=== PATIENT | female | born 1995 | race Caucasian/White ===

== ENCOUNTER 2017-01-25 11:59 | Inpatient (IN) | payer MEDICAID ==
[~2017-01-25] VITALS: Ht 162.6 cm; Wt 55.0 kg
[2017-01-25] MEDS ORDERED: SODIUM CHLORIDE 0.9% 1,000 ML IV ONE ×3 (12:11→16:14)
[2017-01-25] MEDS ORDERED: INSULIN REGULAR (DRIP) 100 UNITS in SODIUM CHLORIDE 0.9% 100 ML IV ONE (12:15)
[2017-01-25] MEDS ORDERED: INSULIN REGULAR (HUMULIN R) UD 100 UNITS/ML SYR IV ONE (12:15)
[2017-01-25 12:35] LABS: BG BASE EXCESS -29.5 mmol/L (-2.0-2.0); BG CARBOXYHEMOGLOBIN 0.3 % (0.5-1.5); BG METHEMOGLOBIN 0.4 % (0.0-1.5); BG OXYHEMOGLOBIN 97.3 % (94.0-97.0); BG PCO2 10.6 mmHg (35.0-45.0); BG PH 6.892 (7.350-7.450); BG PO2 152.7 mmHg (75.0-100.0); BG SAMPLE SITE LEFT RADIAL; BG TOTAL HEMOGLOBIN 12.4 g/dL (12.0-18.0); BG VENT MODE ROOM AIR
[2017-01-25] MEDS ORDERED: INSULIN REGULAR (HUMULIN R) 300UNITS/3ML IV NR (12:45)
[2017-01-25] MEDS ORDERED: INSULIN REGULAR IV NR (12:45)
[2017-01-25] MEDS ORDERED: SODIUM CHLORIDE 0.9% IV NR (12:45)
[2017-01-25] MEDS ORDERED: SODIUM BICARBONATE 8.4% 1 MEQ/ML 50ML SYR IV ONE ×3 (12:45→16:15)
[2017-01-25 13:06] LABS: CHLORIDE 94 mEq/L (98-107); ETHANOL BLOOD < 10 mg/dL; TROPONIN I < 0.02 ng/mL (0.00-0.04)
[2017-01-25 13:07] LABS: CARBON DIOXIDE 3 mEq/L (21-32)
[2017-01-25 13:21] LABS: BASOPHILS % 0.4 % (0.0-2.0); EOSINOPHILS % 0.1 % (0.0-5.0); HEMATOCRIT. 39.2 % (36.0-48.0); HEMOGLOBIN. 11.6 g/dL (12.0-16.0); LYMPHOCYTES % 10.8 % (20.0-50.0); MEAN CORPUSCULAR VOLUME 97.7 fL (81.0-99.0); MEAN PLATELET VOLUME 8.8 fl (7.4-10.4); MONOCYTES % 3.1 % (2.0-8.0); NEUTROPHILS % 85.6 % (40.0-76.0); PLATELET 356 x1000/uL (130-400); RED BLOOD CELL COUNT 4.02 mill/uL (4.2-5.4)
[2017-01-25] MEDS ORDERED: SODIUM BICARBONATE 8.4% 1 MEQ/ML 50ML SYR IV SCH (14:45)
[2017-01-25] MEDS ORDERED: DEXTROSE 50% WATER 50ML SYRINGE IV PRN ×4 (14:45→15:30)
[2017-01-25] MEDS ORDERED: IPRATROPIUM/ALBUTEROL 0.5-3(2.5)MG/3ML NEB HHN PRN (14:45)
[2017-01-25] MEDS: SODIUM BICARBONATE 100 MEQ in DEXTROSE 5% WATER 1,000 ML IV SCH ×3 (15:09)
[2017-01-25] MEDS ORDERED: INSULIN REGULAR (DRIP) 100 UNITS in SODIUM CHLORIDE 0.9% 100 ML IV SCH ×2 (15:20→23:00)
[2017-01-25] MEDS ORDERED: IPRATROPIUM/ALBUTEROL 0.5-3(2.5)MG/3ML NEB INH PRN (15:30)
[2017-01-25] MEDS ORDERED: DIPHENHYDRAMINE 50MG/ML VIAL IV PRN (15:30)
[2017-01-25] MEDS ORDERED: DOCUSATE SODIUM 100MG CAPSULE PO PRN (15:30)
[2017-01-25] MEDS ORDERED: GUAIFENESIN 200MG/10ML SUGAR FREE UDC PO PRN (15:30)
[2017-01-25] MEDS ORDERED: NA PHOS,M-B/NA PHOS,DI-BA ENEMA 118ML PR PRN (15:30)
[2017-01-25] MEDS ORDERED: CLONIDINE 0.1MG TABLET PO PRN (15:30)
[2017-01-25] MEDS ORDERED: ACETAMINOPHEN 650MG/20.3ML UDC GT PRN (15:30)
[2017-01-25] MEDS ORDERED: HYDROCODONE/ACETAMINOPHEN 5/325MG TABLET PO PRN (15:30)
[2017-01-25] MEDS ORDERED: ACETAMINOPHEN 650MG SUPP PR PRN (15:30)
[2017-01-25] MEDS ORDERED: ONDANSETRON HCL 4MG/2ML VIAL IV PRN (15:30)
[2017-01-25] MEDS ORDERED: BLOOD SUGAR DIAGNOSTIC STRIP TEST SCH (15:30)
[2017-01-25] MEDS ORDERED: MAGNESIUM/ALUMINUM HYDROXIDE/SIMETHICONE 30ML UDC PO NR (15:30)
[2017-01-25] MEDS ORDERED: MAGNESIUM/ALUMINUM HYDROXIDE/SIMETHICONE 30ML UDC PO PRN (15:30)
[2017-01-25] MEDS ORDERED: ACETAMINOPHEN 325MG TABLET PO PRN (15:30)
[2017-01-25 15:48] LABS: CHLORIDE 103 mEq/L (98-107)
[2017-01-25 15:50] LABS: BASOPHILS % 0.3 % (0.0-2.0); HEMOGLOBIN. 12.2 g/dL (12.0-16.0); LYMPHOCYTES % 7.8 % (20.0-50.0); MEAN CORPUSCULAR HEMOGLOBIN 28.7 pg (28.0-32.0); MEAN CORPUSCULAR VOLUME 94.2 fL (81.0-99.0); MONOCYTES % 3.3 % (2.0-8.0); NEUTROPHILS % 88.6 % (40.0-76.0); PLATELET 296 x1000/uL (130-400); RED BLOOD CELL COUNT 4.24 mill/uL (4.2-5.4); RED CELL DISTRIBUTION WIDTH 17.8 % (11.6-14.6)
[2017-01-25 16:03] LABS: CARBON DIOXIDE 2 mEq/L (21-32)
[2017-01-25 16:13] LABS: BG BASE EXCESS -27.1 mmol/L (-2.0-2.0); BG CARBOXYHEMOGLOBIN 0.3 % (0.5-1.5); BG DEOXYHEMOGLOBIN 1.7 % (0.0-5.0); BG HCO3 ACT 2.6 mmol/L (22.0-26.0); BG METHEMOGLOBIN 0.3 % (0.0-1.5); BG OXYGEN SATURATION 98.3 % (92.0-98.5); BG OXYHEMOGLOBIN 97.7 % (94.0-97.0); BG PCO2 11.1 mmHg (35.0-45.0); BG PH 6.983 (7.350-7.450); BG PO2 149.1 mmHg (75.0-100.0); BG SAMPLE SITE RIGHT RADIAL; BG TOTAL HEMOGLOBIN 12.6 g/dL (12.0-18.0); BG VENT MODE ROOM AIR
[2017-01-25] MEDS ORDERED: SODIUM BICARBONATE 100 MEQ in SODIUM CHLORIDE 0.45% 1,000 ML IV SCH (16:15)
[2017-01-25 16:25] LABS: *AMPHETAMINES SCREEN URINE NEGATIVE (NEGATIVE); *BARBITURATES SCREEN URINE NEGATIVE (NEGATIVE); *BENZODIAZEPINES SCREEN URINE NEGATIVE (NEGATIVE); *COCAINE SCREEN URINE NEGATIVE (NEGATIVE); CANNABINOID URINE SCREEN NEGATIVE (NEGATIVE); CLARITY URINE CLEAR (CLEAR); COLOR URINE YELLOW (YELLOW); KETONES URINE 4+ (NEGATIVE); LEUKOCYTE ESTERASE URINE NEGATIVE (NEGATIVE); METHADONE URINE SCREEN NEGATIVE (NEGATIVE); NITRITE URINE NEGATIVE (NEGATIVE); OCCULT BLOOD URINE 1+ (NEGATIVE); OPIATES URINE SCREEN NEGATIVE (NEGATIVE); PHENCYCLIDINE URINE SCREEN NEGATIVE (NEGATIVE); PROTEIN URINE 1+ (NEGATIVE); SPECIFIC GRAVITY URINE 1.027 (1.005-1.030); UROBILINOGEN URINE 0.2 E.U./dL (0.2-1.0)
[2017-01-25] MEDS ORDERED: SODIUM CHLORIDE 0.9% 1000ML BAG (SEPSIS BOLUS) IV ONE (18:15)
[2017-01-25] MEDS ORDERED: CEFTRIAXONE 1 G PREMIX 50 ML IV NR (18:15)
[2017-01-25 18:35] LABS: CHLORIDE 108 mEq/L (98-107)
[2017-01-25 18:46] LABS: CARBON DIOXIDE 6 mEq/L (21-32)
[2017-01-25] MEDS ORDERED: LORAZEPAM 0.5MG TABLET PO ONE (20:15)
[2017-01-25] MEDS: BLOOD SUGAR DIAGNOSTIC STRIP TEST SCH ×2 (22:00)
[2017-01-25] MEDS ORDERED: SODIUM BICARBONATE 8.4% 1 MEQ/ML 50ML SYR IV NR (22:30)
[2017-01-25] MEDS: SODIUM CHLORIDE 0.9% INJ 3ML FLUSH IVF SCH (23:03)
[2017-01-25] MEDS: SODIUM CHLORIDE 0.45% 1,000 ML IV SCH (23:04)
[2017-01-25] MEDS: ENOXAPARIN 40MG/0.4ML SYR SUBCUT SCH (23:30)
[2017-01-26] VITALS (24 sets, daily range): BP systolic 103–133; BP diastolic 48–74
[2017-01-26] MEDS: BLOOD SUGAR DIAGNOSTIC STRIP TEST SCH ×8 (01:00→20:47)
[2017-01-26] MEDS: SODIUM BICARBONATE 100 MEQ in DEXTROSE 5% WATER 1,000 ML IV SCH ×12 (01:20→13:29)
[2017-01-26 02:24] LABS: CARBON DIOXIDE 12 mEq/L (21-32); CHLORIDE 109 mEq/L (98-107); CREATINE KINASE 129 IU/L (26-192); CREATINE KINASE MB FRACTION 3.3 ng/mL (0.5-3.6); TROPONIN I < 0.02 ng/mL (0.00-0.04)
[2017-01-26] MEDS: SODIUM CHLORIDE 0.45% 1,000 ML IV SCH ×2 (05:50→13:08)
[2017-01-26] MEDS: SODIUM CHLORIDE 0.9% INJ 3ML FLUSH IVF SCH ×2 (05:57→13:16)
[2017-01-26 06:01] LABS: BASOPHILS % 0.3 % (0.0-2.0); EOSINOPHILS % 0.1 % (0.0-5.0); HEMATOCRIT. 29.9 % (36.0-48.0); HEMOGLOBIN. 9.9 g/dL (12.0-16.0); LYMPHOCYTES % 12.4 % (20.0-50.0); MEAN CORPUSCULAR HEMOGLOBIN 28.6 pg (28.0-32.0); MEAN CORPUSCULAR VOLUME 85.9 fL (81.0-99.0); MEAN PLATELET VOLUME 7.4 fl (7.4-10.4); MONOCYTES % 6.2 % (2.0-8.0); PLATELET 255 x1000/uL (130-400); RED BLOOD CELL COUNT 3.48 mill/uL (4.2-5.4); RED CELL DISTRIBUTION WIDTH 17.4 % (11.6-14.6)
[2017-01-26 06:48] LABS: CARBON DIOXIDE 21 mEq/L (21-32); CHLORIDE 105 mEq/L (98-107); CREATINE KINASE 99 IU/L (26-192); HDL CHOLESTEROL 32 mg/dL (40-59); LDL CHOLESTEROL 35 mg/dL (5-100)
[2017-01-26 06:52] LABS: CREATINE KINASE MB FRACTION 2.2 ng/mL (0.5-3.6); TROPONIN I < 0.02 ng/mL (0.00-0.04)
[2017-01-26 06:53] LABS: BETA HYDROXYBUTYRATE 2.2 mMol/L (0.0-0.3)
[2017-01-26] MEDS ORDERED: POTASSIUM CHLORIDE 20MEQ TABLET SR PO SCH ×2 (08:15→11:00)
[2017-01-26] MEDS ORDERED: DEXTROSE 50% WATER 50ML SYRINGE IV PRN (08:15)
[2017-01-26] MEDS: INSULIN LISPRO 100 UNITS/ML SUBCUT SCH ×4 (08:20→21:02)
[2017-01-26] MEDS: CITRIC ACID/SODIUM CITRATE SOLN 30ML UDC PO SCH ×3 (08:37→16:46)
[2017-01-26 08:55] LABS: BG BASE EXCESS 0.2 mmol/L (-2.0-2.0); BG CARBOXYHEMOGLOBIN 0.3 % (0.5-1.5); BG DEOXYHEMOGLOBIN 1.4 % (0.0-5.0); BG FRACTION INSPIRED OXYGEN 32; BG HCO3 ACT 23.9 mmol/L (22.0-26.0); BG METHEMOGLOBIN 0.3 % (0.0-1.5); BG OXYGEN SATURATION 98.6 % (92.0-98.5); BG PCO2 35.3 mmHg (35.0-45.0); BG PH 7.449 (7.350-7.450); BG PO2 158.8 mmHg (75.0-100.0); BG SAMPLE SITE RIGHT BRACHIAL; BG TOTAL HEMOGLOBIN 10.1 g/dL (12.0-18.0); BG VENT MODE NASAL CANNULA
[2017-01-26] MEDS ORDERED: PANTOPRAZOLE SODIUM 40 MG/VIAL IV SCH (10:00)
[2017-01-26] MEDS: INSULIN DETEMIR UD 100 UNITS/ML SYR SUBCUT SCH ×2 (10:15→21:01)
[2017-01-26] MEDS: METOCLOPRAMIDE HCL 10MG/2ML VIAL IV SCH ×2 (11:34→17:19)
[2017-01-26 13:38] LABS: CARBON DIOXIDE 31 mEq/L (21-32); CHLORIDE 100 mEq/L (98-107)
[2017-01-26 13:41] LABS: BETA HYDROXYBUTYRATE 0.9 mMol/L (0.0-0.3)
[2017-01-26 13:46] LABS: PHOSPHORUS 0.5 mg/dL (2.5-4.9)
[2017-01-26] MEDS ORDERED: SODIUM CHLORIDE 0.9% 1,000 ML IV SCH (14:15)
[2017-01-26] MEDS ORDERED: CEFTRIAXONE 500 MG in DEXTROSE 5% WATER 50 ML IV SCH (15:00)
[2017-01-26] MEDS ORDERED: POTASSIUM PHOS,M-BASIC-D-BASIC 30 MMOL in DEXT 5% WATER 500 ML IV SCH (16:00)
[2017-01-26] MEDS ORDERED: MAGNESIUM 4 G PREMIX 100 ML IV SCH (16:00)
[2017-01-26] MEDS ORDERED: CEFTRIAXONE 500MG in DEXTROSE 5% WATER 50ML IV SCH (17:00)
[2017-01-26] MEDS: ENOXAPARIN 40MG/0.4ML SYR SUBCUT SCH (21:03)
[2017-01-26] MEDS ORDERED: POTASSIUM PHOS,M-BASIC-D-BASIC 30 MMOL in SODIUM CHLORIDE 0.9% 500 ML IV NR (23:30)
== END 2017-01-26 22:12 | disposition left against medical advice (07) | DRG 420 ==
LOC: ER 12:12 → EDBEDREQTM 13:17 → EDBEDREQ 13:17 → CANBEDREQ 13:18 → CVICU 13:19 → ENRESERV 20:22
PROVIDERS: ADMIT Family Medicine; ATTEND Family Medicine
DX: E10.10 Type 1 diabetes mellitus with ketoacidosis without coma (principal); E43 Unspecified severe protein-calorie malnutrition; E87.2 Acidosis; R65.10 Systemic inflammatory response syndrome (SIRS) of non-infectious origin without acute organ dysfunction; K31.84 Gastroparesis; E10.43 Type 1 diabetes mellitus with diabetic autonomic (poly)neuropathy; E10.22 Type 1 diabetes mellitus with diabetic chronic kidney disease; D64.9 Anemia, unspecified; F17.200 Nicotine dependence, unspecified, uncomplicated; N18.9 Chronic kidney disease, unspecified; E87.6 Hypokalemia; F15.10 Other stimulant abuse, uncomplicated; R06.4 Hyperventilation; Z91.19 Patient's noncompliance with other medical treatment and regimen; Z79.4 Long term (current) use of insulin; Z91.14 Patient's other noncompliance with medication regimen; Z68.20 Body mass index [BMI] 20.0-20.9, adult; Z53.21 Procedure and treatment not carried out due to patient leaving prior to being seen by health care provider; E86.0 Dehydration; D72.829 Elevated white blood cell count, unspecified
CPT/HCPCS: 36415; 36600; 71010; 80048; 80053; 80061; 80305; 81001; 82010; 82375; 82550; 82553; 82805; 82962; 83036; 83605; 83690; 83735; 83880; 83930; 84100; 84105; 84484; 85025; 85610; 87040; 87086; 87186; 93005; 96365; 96366; 96375; 96376; 99291; C9113; G0482; J0696; J1650; J1815; J2765; J3475; J3490; J7030; J7040; J7050; J7060; J7070